=== PATIENT | male | born 1950 | race Caucasian/White ===

== ENCOUNTER 2019-02-11 18:18 | Inpatient (IN) ==
[2019-02-11 19:40] LABS: Bilirubin,Urine Small (Negative); Blood,Urine Negative (Negative); Clarity,Urine Clear (Clear); Color,Urine Yellow (Yellow); Glucose,Urine (UA) >=1000 mg/dL (Normal); Ketones,Urine Negative (Negative); Leukocyte Esterase,Urine Negative (Negative); Nitrite,Urine Negative (Negative); PH,Urine 5.5 pH Units (5.0-8.0); Protein,Urine Negative (Neg-Trace); Specific Gravity,Urine 1.029 (1.010-1.025); Urobilinogen,Urine Normal (Normal)
[2019-02-11] MEDS ORDERED: Isovue-370 500 ML BOTTLE IVP ONE (19:48)
--- NOTE | 2019-02-11 19:55 | Emergency Department Note ---
Disposition Clinical Impression: Abnormal abdominal CT scan, Abnormal liver function test, Leukocytosis, History of colon cancer, Diabetes, Prostatic hypertrophy, Frail elderly, Abdominal pain Disposition: Admitted As Inpatient Referrals: Naye Chapman CNP [Primary Care Provider] - Forms: ED Satisfaction Letter, Work/School Release Time of Disposition: 03:11 General Adult HPI - General Chief complaint: ED Abdominal Pain Stated complaint: ABD Pain Time Seen by Provider: 02/11/19 19:35 Source: patient Limitations: no limitations - History of Present Illness HPI Narrative: 68-year-old male reports to the emergency department with concerns for left lower abdominal pain which has been present for about 2 days he went to see his primary care physician who examined him and thought perhaps he had diverticulitis so he recommended patient come to the emergency department. There is no history of vomiting diarrhea or bloody stool. No genital discomfort pain or acute genital or urinary concern. There is no history of flank or back pain. The patient is not anticoagulated. He denies chest or abdominal pain. There is no history of trauma. No fevers or rashes. No spinal pain no trouble moving the arms or legs independently no facial drooping confusion or headache reported. The patient describes a history of colon cancer his last abdominal surgery was 2007 for that particular pathology. The patient denies a history of gallbladder disease gastritis or pancreatitis. The patient describes left lower abdominal pain without other acute complaints. Pain Scale: 3 - Related Data Allergies Allergy/AdvReac Type Severity Reaction Status Date / Time No Known Allergies Allergy Verified 02/11/19 18:33 All systems ED: reviewed and negative except as stated. Past Medical History - Past Medical History Medical history: Reports: arthritis, cancer, diabetes, hyperlipidemia, hypertension Surgical history: Reports: colectomy, orthopedic, other Psychiatric history: Reports: no psych history - Social History Smoking Status: Former smoker Smokeless Tobacco Status: No Alcohol use: Reports: occasionally Drug use: Reports: none Physical Exam - General Limitations: no limitations General appearance: alert, in no apparent distress - Head Head exam: atraumatic, normocephalic, normal inspection - Eye Eye exam: Present: normal appearance, PERRL, EOMI, scleral icterus - ENT ENT exam: normal exam, normal oropharynx, mucous membranes moist, TM's normal bilaterally, normal external ear exam - Neck Neck exam: Present: normal inspection, full ROM, trachea midline - Chest Chest inspection: Present: symmetric chest wall rise. Absent: tenderness - Respiratory Respiratory exam: Present: normal lung sounds bilaterally. Absent: respiratory distress, prolonged expiratory phase - Cardiovascular Cardiovascular exam: Present: regular rate, normal rhythm, normal heart sounds - Abdominal Exam Abdominal exam: Present: soft, tenderness. Absent: distention, guarding, rebound, rigidity, trauma, Skinner's sign, pulsatile mass, hernia Abdominal tenderness: Present: LLQ, moderate - Extremities Exam Extremities exam: Present: normal inspection, full ROM, normal capillary refill. Absent: tenderness, pedal edema, joint swelling, calf tenderness - Expanded Lower Extremity Exam Neurovascular/Tendon exam: Present: normal capillary refill. Absent: motor deficit, sensory deficit, tendon deficit, extremity cold to touch, pallor - Back Exam Back exam: Present: normal inspection, full ROM. Absent: tenderness, CVA tenderness (R), CVA tenderness (L), vertebral tenderness - Neurological Exam Neurological exam: Present: alert, oriented X3, CN II-XII intact. Absent: motor sensory deficit - Psychiatric Psychiatric exam: Present: normal affect, normal mood - Skin Skin exam: Present: warm, dry, intact Course Vital Signs Temperature 99.3 F 02/11/19 18:29 Pulse Rate 92 02/11/19 18:29 Respiratory Rate 16 02/11/19 18:29 Blood Pressure 124/67 02/11/19 18:29 O2 Sat by Pulse Oximetry 92 02/11/19 18:29 Temperature 99.3 F 02/11/19 18:29 Pulse Rate 59 02/12/19 00:43 Respiratory Rate 18 02/12/19 00:43 Blood Pressure 125/54 02/12/19 00:43 O2 Sat by Pulse Oximetry 94 02/12/19 00:43 Oxygen Delivery Oxygen Delivery Room Air Medical Decision Making - [facility] Narrative Medical decision making narrative: The patient presents to the emergency department with abdominal pain, he was sent in by his primary care physician with concerns for left-sided abdominal pain. Laboratory studies show significant liver function test abnormalities. His prior LFTs a few months ago were normative. CT scan suggestive of pyelonephritis. The patient had a low-grade temperature, very slight tachycardi a, he does have an elevated white blood cell count and could meet sepsis criteria. IV fluids were given blood cultures were sent Ancef given in consultation with the pharmacist. Hepatitis testing pending. Based on the patient's significant liver function abnormalities, elevated white blood cell c ount, abnormal CT scan with potential pyelonephritis, in association with comorbidities including hypertension, hyperlipidemia, and diabetes with possible sepsis, I thought it would be appropriate to admit the patient to the hospital. He is agreeable. He was treated for pain in the emergency department and appears to be stable. CPK ordered. I discussed the case with the hospitalist on-call who has accepted the patient to their care pending PT PTT and ammonia level. If INR greater than 1.7 consideration for transfer will be given. Dr. Trujillo is aware and will intervene if there is a change in plan. - Lab Data Lab results reviewed: Yes I reviewed the patient's lab results. Result diagrams: 02/11/19 20:00 02/11/19 19:40 Lab Results 02/11/19 02/11/19 02/11/19 Range/Units 19:30 19:40 19:40 WBC (4.3-11.1) K/mcL RBC (4.19-5.50) M/mcL Hgb (12.9-16.9) g/dL Hct (37.5-50.1) % MCV (83.0-100.0) fL MCH (28.0-33.3) pg MCHC (31.6-35.5) g/dL RDW (11.5-14.5) % Plt Count (140-400) K/mcL MPV (9.4-12.4) fL Immature Gran % (0-4) % Seg Neutrophils % % Lymphocytes % % Monocytes % % Eosinophils % % Basophils % % Neutrophils # (1.6-8.9) K/mcL Lymphocytes # (0.6-4.6) K/mcL Monocytes # (0.0-1.3) K/mcL Eosinophils # (0.0-0.6) K/mcL Basophils # (0.0-0.2) K/mcL Reactive Lymphocytes (Not Present) Toxic Granulation (Not Present) Toxic Vacuolation (Not Present) Platelet Estimate (Normal) Large Platelets (Not Present) Sodium 136 (136-145) mEq/L Potassium 4.0 (3.5-5.1) mEq/L Chloride 101 (98-107) mEq/L Carbon Dioxide 23 (23-29) mEq/L BUN 19 (8-23) mg/dL Creatinine 0.86 (0.70-1.30) mg/dL Est GFR ( Amer) > 60 (> 60) Est GFR (Non-Af Amer) > 60 (> 60) BUN/Creatinine Ratio 22 (6-26) Glucose 168 H (70-105) mg/dL Calculated Osmolality 288 (280-300) Lactic Acid (0.5-2.2) mmol/L Calcium 9.6 (8.6-10.3) mg/dL Total Bilirubin 3.3 H (0.3-1.0) mg/dL Direct Bilirubin 1.9 H (0.0-0.2) mg/dL Indirect Bilirubin 1.4 H (0.0-1.2) mg/dL AST 1382 H (13-39) Units/L ALT 1405 H (7-52) Units/L Alkaline Phosphatase 202 H (34-104) Units/L C-Reactive Protein (Less than 10) mg/L Serum Total Protein 6.4 (6.4-8.9) g/dL Albumin 4.0 (3.5-5.7) g/dL Globulin 2.4 (2.4-3.5) g/dL Albumin/Globulin Ratio 1.7 (1.1-2.2) Lipase 64 (11-82) Units/L Urine Color Yellow (Yellow) Urine Clarity Clear (Clear) Urine pH 5.5 (5.0-8.0) pH Units Ur Specific D[place] 1.029 H (1.010-1.025) Urine Protein Negative (Neg-Trace) mg/dL Urine Glucose (UA) >=1000 H (Normal) mg/dL Urine Ketones Negative (Negative) mg/dL Urine Blood Negative (Negative) Urine Nitrite Negative (Negative) Urine Bilirubin Small H (Negative) Urine Urobilinogen Normal (Normal) mg/dL Ur Leukocyte Esterase Negative (Negative) Ur Culture Indicated? NO (NO) Acetaminophen (10-20) mcg/mL Hepatitis A IgM Ab (Nonreactive) Hep Bs Antigen (Nonreactive) Hep B Core IgM Ab (Nonreactive) Hepatitis C Ab Screen (Nonreactive) Specimen Rejected Clotted 02/11/19 02/11/19 02/11/19 Range/Units 20:00 20:00 20:00 WBC 19.2 H (4.3-11.1) K/mcL RBC 4.81 (4.19-5.50) M/mcL Hgb 14.2 (12.9-16.9) g/dL Hct 43.4 (37.5-50.1) % MCV 90.2 (83.0-100.0) fL MCH 29.5 (28.0-33.3) pg MCHC 32.7 (31.6-35.5) g/dL RDW 13.6 (11.5-14.5) % Plt Count 175 (140-400) K/mcL MPV 10.3 (9.4-12.4) fL Immature Gran % 0.6 (0-4) % Seg Neutrophils % 89.5 % Lymphocytes % 2.9 % Monocytes % 6.8 % Eosinophils % 0.0 % Basophils % 0.2 % Neutrophils # 17.2 H (1.6-8.9) K/mcL Lymphocytes # 0.6 (0.6-4.6) K/mcL Monocytes # 1.3 (0.0-1.3) K/mcL Eosinophils # 0.0 (0.0-0.6) K/mcL Basophils # 0.0 (0.0-0.2) K/mcL Reactive Lymphocytes Present A (Not Present) Toxic Granulation Present A (Not Present) Toxic Vacuolation Present A (Not Present) Platelet Estimate Normal (Normal) Large Platelets Present A (Not Present) Sodium (136-145) mEq/L Potassium (3.5-5.1) mEq/L Chloride (98-107) mEq/L Carbon Dioxide (23-29) mEq/L BUN (8-23) mg/dL Creatinine (0.70-1.30) mg/dL Est GFR ( Amer) (> 60) Est GFR (Non-Af Amer) (> 60) BUN/Creatinine Ratio (6-26) Glucose (70-105) mg/dL Calculated Osmolality (280-300) Lactic Acid 2.0 (0.5-2.2) mmol/L Calcium (8.6-10.3) mg/dL Total Bilirubin (0.3-1.0) mg/dL Direct Bilirubin (0.0-0.2) mg/dL Indirect Bilirubin (0.0-1.2) mg/dL AST (13-39) Units/L ALT (7-52) Units/L Alkaline Phosphatase (34-104) Units/L C-Reactive Protein 28 H (Less than 10) mg/L Serum Total Protein (6.4-8.9) g/dL Albumin (3.5-5.7) g/dL Globulin (2.4-3.5) g/dL Albumin/Globulin Ratio (1.1-2.2) Lipase (11-82) Units/L Urine Color (Yellow) Urine Clarity (Clear) Urine pH (5.0-8.0) pH Units Ur Specific [place] (1.010-1.025) Urine Protein (Neg-Trace) mg/dL Urine Glucose (UA) (Normal) mg/dL Urine Ketones (Negative) mg/dL Urine Blood (Negative) Urine Nitrite (Negative) Urine Bilirubin (Negative) Urine Urobilinogen (Normal) mg/dL Ur Leukocyte Esterase (Negative) Ur Culture Indicated? (NO) Acetaminophen (10-20) mcg/mL Hepatitis A IgM Ab (Nonreactive) Hep Bs Antigen (Nonreactive) Hep B Core IgM Ab (Nonreactive) Hepatitis C Ab Screen (Nonreactive) Specimen Rejected 02/11/19 02/11/19 Range/Units 23:17 23:17 WBC (4.3-11.1) K/mcL RBC (4.19-5.50) M/mcL Hgb (12.9-16.9) g/dL Hct (37.5-50.1) % MCV (83.0-100.0) fL MCH (28.0-33.3) pg MCHC (31.6-35.5) g/dL RDW (11.5-14.5) % Plt Count (140-400) K/mcL MPV (9.4-12.4) fL Immature Gran % (0-4) % Seg Neutrophils % % Lymphocytes % % Monocytes % % Eosinophils % % Basophils % % Neutrophils # (1.6-8.9) K/mcL Lymphocytes # (0.6-4.6) K/mcL Monocytes # (0.0-1.3) K/mcL Eosinophils # (0.0-0.6) K/mcL Basophils # (0.0-0.2) K/mcL Reactive Lymphocytes (Not Present) Toxic Granulation (Not Present) Toxic Vacuolation (Not Present) Platelet Estimate (Normal) Large Platelets (Not Present) Sodium (136-145) mEq/L Potassium (3.5-5.1) mEq/L Chloride (98-107) mEq/L Carbon Dioxide (23-29) mEq/L BUN (8-23) mg/dL Creatinine (0.70-1.30) mg/dL Est GFR ( Amer) (> 60) Est GFR (Non-Af Amer) (> 60) BUN/Creatinine Ratio (6-26) Glucose (70-105) mg/dL Calculated Osmolality (280-300) Lactic Acid (0.5-2.2) mmol/L Calcium (8.6-10.3) mg/dL Total Bilirubin (0.3-1.0) mg/dL Direct Bilirubin (0.0-0.2) mg/dL Indirect Bilirubin (0.0-1.2) mg/dL AST (13-39) Units/L ALT (7-52) Units/L Alkaline Phosphatase (34-104) Units/L C-Reactive Protein (Less than 10) mg/L Serum Total Protein (6.4-8.9) g/dL Albumin (3.5-5.7) g/dL Globulin (2.4-3.5) g/dL Albumin/Globulin Ratio (1.1-2.2) Lipase (11-82) Units/L Urine Color (Yellow) Urine Clarity (Clear) Urine pH (5.0-8.0) pH Units Ur Specific Dray[place] (1.010-1.025) Urine Protein (Neg-Trace) mg/dL Urine Glucose (UA) (Normal) mg/dL Urine Ketones (Negative) mg/dL Urine Blood (Negative) Urine Nitrite (Negative) Urine Bilirubin (Negative) Urine Urobilinogen (Normal) mg/dL Ur Leukocyte Esterase (Negative) Ur Culture Indicated? (NO) Acetaminophen < 10 L (10-20) mcg/mL Hepatitis A IgM Ab Nonreactive (Nonreactive) Hep Bs Antigen Nonreactive (Nonreactive) Hep B Core IgM Ab Nonreactive (Nonreactive) Hepatitis C Ab Screen Nonreactive (Nonreactive) Specimen Rejected - Radiology Data Radiology results reviewed: Yes I reviewed the patient's radiology results.
[2019-02-11 20:30] LABS: Basophils % 0.2 %; Hematocrit 43.4 % (37.5-50.1); Hemoglobin 14.2 g/dL (12.9-16.9); Immature Granulocytes % 0.6 % (0-4); Lymphocytes # 0.6 K/mcL (0.6-4.6); Lymphocytes % 2.9 %; Mean Corpuscular HGB Conc 32.7 g/dL (31.6-35.5); Mean Corpuscular Hemoglobin 29.5 pg (28.0-33.3); Mean Platelet Volume 10.3 fL (9.4-12.4); Monocytes # 1.3 K/mcL (0.0-1.3); Monocytes % 6.8 %; Neutrophils # 17.2 K/mcL (1.6-8.9); Platelet Count 175 K/mcL (140-400); Red Blood Count 4.81 M/mcL (4.19-5.50); Red Cell Distribution Width 13.6 % (11.5-14.5); Segmented Neutrophils % 89.5 %; White Blood Count 19.2 K/mcL (4.3-11.1)
[2019-02-11 20:34] LABS: Mean Corpuscular Volume 90.2 fL (83.0-100.0)
[2019-02-11 20:48] LABS: Alanine Aminotransferase 1405 Units/L (7-52); Albumin/Globulin Ratio 1.7 (1.1-2.2); Alkaline Phosphatase 202 Units/L (34-104); Aspartate Amino Transferase 1382 Units/L (13-39); BUN/Creatinine Ratio 22 (6-26); Bilirubin,Direct 1.9 mg/dL (0.0-0.2); Bilirubin,Indirect 1.4 mg/dL (0.0-1.2); Bilirubin,Total 3.3 mg/dL (0.3-1.0); Blood Urea Nitrogen 19 mg/dL (8-23); Calcium 9.6 mg/dL (8.6-10.3); Carbon Dioxide 23 mEq/L (23-29); Chloride 101 mEq/L (98-107); Globulin 2.4 g/dL (2.4-3.5); Glucose 168 mg/dL (70-105); Lipase 64 Units/L (11-82); Osmolality,Calculated 288 (280-300); Sodium 136 mEq/L (136-145); Total Protein 6.4 g/dL (6.4-8.9); eGFR For African Americans > 60 (> 60); eGFR For Non-African Americans > 60 (> 60)
[2019-02-11 20:49] LABS: Large Platelets Present (Not Present); Platelet Estimate Normal (Normal); Reactive Lymphocytes Present (Not Present); Toxic Granulation Present (Not Present); Toxic Vacuolation Present (Not Present)
[2019-02-11] MEDS ORDERED: *HR* HYDROmorphone (PF) 1 MG/ML SYRINGE IVP ONE (21:46)
[2019-02-11] MEDS ORDERED: Ondansetron 4 MG/2 ML VIAL IVP ONE (21:48)
[2019-02-11] MEDS ORDERED: 0.9 % Sodium Chloride 1,000 ML IVC ONE (22:55)
[2019-02-12 00:58] LABS: Hepatitis B Surface Antigen Nonreactive (Nonreactive)
[2019-02-12] MEDS ORDERED: ceFAZolin 2,000 MG in Water for inj. (sterile) 20 ML IVP ONE (01:26)
[2019-02-12 01:27] LABS: Hepatitis B Core IgM Nonreactive (Nonreactive)
[2019-02-12 01:28] LABS: Hepatitis A Antibody IgM Nonreactive (Nonreactive); Hepatitis C Virus Antibody Nonreactive (Nonreactive)
[2019-02-12 04:02] LABS: Prothrombin Time 11.3 Seconds (9.4-12.1)
[2019-02-12 04:04] LABS: Activated Partial Thrombo Time 28.9 Seconds (26.0-36.0)
[2019-02-12 04:12] LABS: Albumin 3.7 g/dL (3.5-5.7); Albumin/Globulin Ratio 1.6 (1.1-2.2); Bilirubin,Direct 3.9 mg/dL (0.0-0.2); Bilirubin,Indirect 0.9 mg/dL (0.0-1.2); Bilirubin,Total 4.8 mg/dL (0.3-1.0); Globulin 2.3 g/dL (2.4-3.5)
[2019-02-12] MEDS ORDERED: Piperacillin/Tazobactam 3.375 GM in Water for inj. (sterile) 20 ML IVP ONE (04:37)
--- NOTE | 2019-02-12 04:43 | Emergency Department Note ---
START Narrative - START START: Dr. Zepeda notified of pending lab results and accepted admission of the patient. He requested we start Zosyn for possible choledocholithiasis. Patient resting comfortably in the room.
[2019-02-12] MEDS ORDERED: Ringers Solution, Lactated 1,000 ML IVC SCH (05:00)
[2019-02-12] MEDS ORDERED: *HR* Dextrose 50 % in Water (Syg) 50 ML SYRINGE IVP PRN (05:26)
[2019-02-12] MEDS ORDERED: Dextrose Gel 15 GM/37.5 ML TUBE PO PRN ×2 (05:26)
--- NOTE | 2019-02-12 05:56 | Internal Med History&Physical ---
Date of Encounter: 02/12/19 Time of Encounter: 05:51 Internal Medicine - H&P: HPI Chief complaint: abdominal pain Admitted From: Home () Plans for Post Hospital Care: Home History of present illness: Christopher Strickland is a 68 year old man with hypertension, hyperlipidemia and diabetes who presents to the emergency room for evaluation of abdominal pain that started over the last 2-3 days, initially intermittent and non-specific but yesterday felt the pain exacerbate and localize itself to his epigastrium, f eeling as though his abdomen became indurated and over time the pain dissipated into his lower abdomen. He denies associated nausea, vomiting, diarrhea, chest pain, fever, chills, dyspnea and diaphoresis. He went to his PCP who advised he come to the ER for evaluation. While he reports a history of colon cancer resected in 2007, he denies a history of gallbladder and pancreatic disease. In the ER he was hemodynamically stable but lab work revealed a leukocyte count of 19.2 with toxic granulation and large vacuolation. Serum chemistry showed his AST/ALT to be >1300 with an initial Alk phos of 202 and Tbil 3.3/Dbil 1.9 which on repeat increased to 4.8/3/[address] scan of his abdomen reported no issues with his hepatic parenchyma and gallbladder. He is admitted for further care. He tells me his abdominal pain has resolved after receiving analgesics in the ER. He denies acholia and coluria. No pruritis or mental status changes. He denies any recently introduced medications and the only OTC medication he takes is calcium. Vitals: Reviewed General: Well developed man lying in bed in NAD. Skin: Warm and supple. HEENT: Moist mucous membranes. No conjunctivae pallor. Mild scleral icterus noted. Neck: No lymphadenopathy. No JVD. No carotid bruits. No palpable thyroid. Chest: Normal thoracic expansion. Normal breath sounds. Clear to auscultation. Heart: Normal S1 & S2; rhythmic. No rubs or murmurs. Abdomen: Distended, soft and non-tender to palpation. No peritoneal reaction. Extremities: No clubbing, cyanosis or edema. No calf tenderness. Normal distal pulses. Neurological: Awake, alert and oriented to person, place and time. No focal deficits. No asterixis. Psych: Affect appropriate. Assessment/Plan 1. Acute liver injury: As evidenced by the significant dysfunction of his LFTs with a mixed picture showing both hepatocellular and a cholestatic pattern. He has mild scleral icterus but otherwise his clinical exam is benign. Even his urine macroscopically and microscopically is without signs of bilirubinuria. The etiology is unclear. His APAP level is <10, he denies EtOH and illicit drug use, He is not on any dietary supplements, antibiotics and no recent drugs introduced that could be a cause. He takes 80mg of atorvastatin and this is a potential cause if found to be drug-induced. Viral hepatitis has been ruled out. Will also need to rule out intrinsic biliary disease. An MRCP was ordered however he reports claustrophobia and intolerance to MRI studies so will get a simple liver ultrasound for now. He received a dose of PipTazo empirically for the associated leukocytosis however he clinically has no signs of infection/sepsis present at the moment. The CT did not show liver parenchymal lesions to suggest malignancy. Will probably need a revised CT read to ensure its normalcy. Hold all home medications, keep NPO for now and start IVF. Will consult GI in the interim for further recommendations. 2. Abnormal CT: There is report of renal perinephric standing suspicious for pyelonephritis. This does not correlate with him clinically nor his urinalysis. No indication for treatment of this. It may be reactive inflammatory changes seen. 3. Hypertension: Currently well controlled. 4. Diabetes: Will place on insulin sliding scale. Diet can be resumed after studies are done. Past Med Surg Social Fam HX - Past Medical History Medical history: arthritis, cancer, diabetes, hyperlipidemia, hypertension Additional medical history: Colon Cancer Psychiatric history: no psych history - Past Surgical History Surgical History: colectomy, orthopedic, other Additional surgical history: head trauma sx, tumor removed from buttocks, pins placed in hips - Social History Smoking Status: Former smoker Smokeless Tobacco Status: No Alcohol use: occasionally Drug use: none Internal Medicine - H&P: Meds Allergy/AdvReac Type Severity Reaction Status Date / Time No Known Allergies Allergy Verified 02/11/19 18:33 All Systems PM: A 10-system review of systems was performed and is negative for pertinent findings except as documented above in the HPI. Family history reviewed and found non-contributory. - Constitutional Vitals: Temp Pulse Resp BP Pulse Ox 99.3 F 64 18 128/62 95 02/11/19 18:29 02/12/19 04:51 02/12/19 04:51 02/12/19 04:51 02/12/19 04:51 Exam: . Internal Med - H&P Results - Labs CBC & Chem 7: 02/11/19 20:00 02/11/19 19:40 Labs: Short CBC 02/11/19 Range/Units 20:00 WBC 19.2 H (4.3-11.1) K/mcL Hgb 14.2 (12.9-16.9) g/dL Hct 43.4 (37.5-50.1) % Plt Count 175 (140-400) K/mcL Neutrophils # 17.2 H (1.6-8.9) K/mcL BMP 02/11/19 19:40 Sodium 136 Potassium 4.0 Chloride 101 Carbon Dioxide 23 BUN 19 Creatinine 0.86 Glucose 168 H Calcium 9.6 Liver Function 02/11/19 02/12/19 Range/Units 19:40 03:42 Total Bilirubin 3.3 H 4.8 H (0.3-1.0) mg/dL Direct Bilirubin 1.9 H 3.9 H (0.0-0.2) mg/dL AST 1382 H 756 H (13-39) Units/L ALT 1405 H 1225 H (7-52) Units/L Alkaline Phosphatase 202 H 183 H (34-104) Units/L Albumin 4.0 3.7 (3.5-5.7) g/dL Urine 02/11/19 Range/Units 19:30 Urine Color Yellow (Yellow) Urine Clarity Clear (Clear) Urine pH 5.5 (5.0-8.0) pH Units Ur Specific Sharon 1.029 H (1.010-1.025) Urine Protein Negative (Neg-Trace) mg/dL Urine Glucose (UA) >=1000 H (Normal) mg/dL - Impressions ITS Impressions Abdomen/Pelvis CT 02/11/19 19:48 IMPRESSION: There is patchy diminished cortical enhancement in both kidneys with perinephric fat stranding. Findings are suspicious for inflammatory/edematous changes of acute pyelonephritis. Clinical correlation recommended. Mild urinary bladder wall thickening versus underdistention. Mild to moderate prostatomegaly. Few tiny gallstones are suspected. Left paraumbilical fat containing hernia. D/ / Marco Banks MD / Marco Banks MD Interpreting Provider: Marco Banks MD Chest X-Ray 02/11/19 22:55 IMPRESSION: Negative chest. D/ / Wilfrido Braden MD / Wilfrido Braden MD Interpreting Provider: Wilfrido Braden MD - Time Spent With Patient Total time spent is greater than 50% in coordination of care (as documented) at patient's floor/unit and/or counseling patient:
[2019-02-12] MEDS: Insulin LISPRO 300 UNITS/3 ML VIAL SQ SCH ×3 (06:35→18:29)
[2019-02-12 08:54] LABS: Basophils % 0.2 %; Eosinophils # 0.1 K/mcL (0.0-0.6); Eosinophils % 0.4 %; Hematocrit 43.3 % (37.5-50.1); Hemoglobin 13.9 g/dL (12.9-16.9); Immature Granulocytes % 0.6 % (0-4); Lymphocytes # 1.1 K/mcL (0.6-4.6); Lymphocytes % 7.1 %; Mean Corpuscular HGB Conc 32.1 g/dL (31.6-35.5); Mean Corpuscular Hemoglobin 29.4 pg (28.0-33.3); Mean Corpuscular Volume 91.7 fL (83.0-100.0); Monocytes % 6.6 %; Neutrophils # 12.7 K/mcL (1.6-8.9); Platelet Count 162 K/mcL (140-400); Red Blood Count 4.72 M/mcL (4.19-5.50); Red Cell Distribution Width 14.1 % (11.5-14.5); Segmented Neutrophils % 85.1 %; White Blood Count 14.9 K/mcL (4.3-11.1)
[2019-02-12] MEDS ORDERED: D5% in Water 1,000 ML IVC PRN (09:19)
[2019-02-12 09:30] LABS: Alanine Aminotransferase 1130 Units/L (7-52); Albumin 3.7 g/dL (3.5-5.7); Albumin/Globulin Ratio 1.6 (1.1-2.2); Alkaline Phosphatase 186 Units/L (34-104); Aspartate Amino Transferase 615 Units/L (13-39); BUN/Creatinine Ratio 22 (6-26); Bilirubin,Direct 4.3 mg/dL (0.0-0.2); Bilirubin,Indirect 0.9 mg/dL (0.0-1.2); Bilirubin,Total 5.2 mg/dL (0.3-1.0); Blood Urea Nitrogen 22 mg/dL (8-23); Calcium 9.1 mg/dL (8.6-10.3); Carbon Dioxide 28 mEq/L (23-29); Chloride 102 mEq/L (98-107); Globulin 2.3 g/dL (2.4-3.5); Glucose 121 mg/dL (70-105); Osmolality,Calculated 293 (280-300); Potassium 3.7 mEq/L (3.5-5.1); Sodium 139 mEq/L (136-145); eGFR For African Americans > 60 (> 60); eGFR For Non-African Americans > 60 (> 60)
[2019-02-12 09:47] LABS: Hepatitis B Surface Antibody 4.39 mIU/mL
[2019-02-12 09:57] LABS: Hepatitis B Surface Antigen Nonreactive (Nonreactive)
[2019-02-12 10:26] LABS: Hepatitis C Virus Antibody Nonreactive (Nonreactive)
--- NOTE | 2019-02-12 10:57 | Gastroenterology Consult Note ---
<Alisha Anders - Last Filed: 02/12/19 14:52> Date of Encounter: 02/12/19 Time of Encounter: 10:38 - Assessment and plan (1) Elevated LFTs Status: Acute Assessment and plan: Presented to the ED complaining of spastic sharp intermittent abdominal pain onset 1 day prior to presentation In the ED noted to have ALT of 1405 with AST of 1382 and total bilirubin 3.3. This morning ALT 1130 with AST is 615, alkaline phosphatase 186 total bilirubin 5.2 with direct bilirubin 4.3 He does currently have an intact gallbladder Denies any alcohol use or acetaminophen use CT of the abdomen did not show any colonic or liver findings MRCP pending as choledocholithiasis cannot be ruled out Liver ultrasound showed mild inflammation of gallbladder ordered HIDA scan Ferritin and iron panel ordered to evaluate for hemachromatosis Ceruloplasmin ordered to evaluate for Rashaun's ONEIDA and LDH additionally ordered - Time Spent With Patient Total time spent is greater than 50% in coordination of care (as documented) at patient's floor/unit and/or counseling patient: GI History of Present Illness - Data of Consult Requesting Physician: Dena Johnson - Consult Narrative History of present illness: Mr. Strickland is a 68 year old male with past medical history of hyperlipidemia, hypertension, diabetes, colon cancer with hemicolectomy colectomy 2007 who presented to the ED complaining of abdominal pain ongoing for the past 2 days. At home on a glymepiride, atenolol, atorvastatin, ferrous sulfate, farxiga, metformin, losartan and furosemide. He reported spastic sharp upper right and left quadrant abdominal pain that woke him up yesterday morning during the day pain subsided subsequently visited his PCP who sent him to the ER. Today he is reporting left lower quadrant bowel pain that is intermittent in and dull in intensity now. States the intensity decreased after he had a banana and Sprite at home. Reports he had similar episode about 3 weeks ago which resolved on its own. He reports he had a most recent colonoscopy one year ago which was within normal limits. In the ED his white blood cell count was noted to be 19.2 with ALT and AST above 1300. This morning his AST is 650 and ALT is 11:30 with alkaline phosphatase 186. He has an ammonia of 57. Reports occasional alcohol use with 1-2 beers a week. Denies tobacco use, marijuana use or any supplements or awkw-[id number]-gskzbkz medications including acetaminophen. He previously had an appendectomy during his hemicolectomy in 2007 but has an intact gallbladder. Denies fever, chills, nausea, emesis, shortness of breath, chest pain. 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 He additionally denies any family history of colonic or liver malignancies. Past Med Surg Social Fam HX - Past Medical History Medical history: arthritis, cancer, diabetes, hyperlipidemia, hypertension Additional medical history: Colon Cancer Psychiatric history: no psych history - Past Surgical History Surgical History: colectomy, orthopedic, other Additional surgical history: head trauma sx, tumor removed from buttocks, pins placed in hips - Social History Smoking Status: Former smoker Smokeless Tobacco Status: No Alcohol use: occasionally Drug use: none - Gastrointestinal Gastrointestinal: Present: abdominal pain. Absent: constipation, diarrhea, melena, nausea - Constitutional Constitutional: fatigue, no fever(s) - EENT Nose, mouth and throat: Absent: dysphagia, sore throat - Cardiovascular Cardiovascular ROS: Absent: chest pain, palpitations - Respiratory Respiratory IM: Absent: cough, dyspnea - Genitourinary Genitourinary: Present: change in color (Darker in color) - Neurological ROS Neurological GI: Absent: confusion, frequent falls, headache(s), weakness - Hematologic/Lymphatic Hematologic/Lymphatic pediatric: Absent: easy bleeding - Musculoskeletal Musculoskeletal ROS GI: Absent: back pain, joint swelling - Integumentary Integumentary GI: Absent: pruritis, rash - Constitutional Vitals: Temp Pulse Resp BP Pulse Ox 98.3 F 58 16 158/79 95 02/12/19 06:31 02/12/19 06:31 02/12/19 06:31 02/12/19 06:31 02/12/19 04:51 General appearance: Present: A&O X 3, no acute distress - Head Head exam: Present: atraumatic, normal inspection - Eye Eye exam: Present: EOMI, scleral icterus - ENT ENT exam: Present: mucous membranes moist Additional comments: Yellowing under tongue noted - Respiratory Respiratory exam: Present: CTAB. Absent: rhonchi, wheezes - Cardiovascular Cardiovascular exam: Present: RRR, +S1, +S2 - GI/Abdominal GI/Abdominal exam: Present: soft. Absent: distended, firm, guarding, tenderness - Extremities Exam Extremities exam: Present: warm. Absent: pedal edema, tenderness - Neurological Exam Neurological exam: Present: alert, oriented X3 - Psychiatric Psychiatric exam: Present: normal affect, normal mood - Skin Skin exam: Present: dry. Absent: normal color (jaundice ), rash Results - Labs CBC & Chem 7: 02/12/19 08:31 02/12/19 08:31 Labs: Last Result 02/12/19 08:31 Calcium 9.1 Entire Visit 02/11/19 02/12/19 02/12/19 23:17 03:42 03:42 Hgb Hct PT 11.3 Total Bilirubin AST ALT Ammonia 57 H Acetaminophen < 10 L 02/12/19 02/12/19 02/12/19 03:42 08:31 08:31 Hgb 13.9 Hct 43.3 PT Total Bilirubin 4.8 H 5.2 H AST 756 H 615 H ALT 1225 H 1130 H Ammonia Acetaminophen - ABG ABG results: PT/INR, D-dimer PT 11.3 Seconds (9.4-12.1) 02/12/19 03:42 - Impressions Impressions Abdomen/Pelvis CT 02/11/19 19:48 IMPRESSION: There is patchy diminished cortical enhancement in both kidneys with perinephric fat stranding. Findings are suspicious for inflammatory/edematous changes of acute pyelonephritis. Clinical correlation recommended. Mild urinary bladder wall thickening versus underdistention. Mild to moderate prostatomegaly. Few tiny gallstones are suspected. Left paraumbilical fat containing hernia. D/ / Marco Banks MD / Marco Banks MD Interpreting Provider: Marco Banks MD Chest X-Ray 02/11/19 22:55 IMPRESSION: Negative chest. D/ / Wilfrido Braden MD / Wilfrido Braden MD Interpreting Provider: Wilfrido Braden MD Liver Ultrasound 02/12/19 09:00 IMPRESSION: Cholelithiasis is present. There is mild edema of the gallbladder wall, which could be related to intrinsic liver disease. If there is high clinical suspicion for acute cholecystitis, further evaluation with a HIDA scan could be considered. D/ / Deonte Monzon MD / Deonte Monzon MD Interpreting Provider: Deonte Monzon MD Consult Discharge Plan - Plan Referrals: Naye Chapman CNP [Primary Care Provider] - (Web Request sent 02/15/2019. Office will call with appointment. ) Prescriptions: Glimepiride [Amaryl] 4 mg PO QAM #30 tablet metFORMIN [Glucophage] 500 mg PO BIDWM #60 tablet HYDROcodone/Acet 5/325 mg [[place] 5-325 mg] 1 tab PO DAILY PRN 7 Days #7 tablet PRN Reason: Pain Metoprolol XL (24 HR) Succ [Toprol Xl] 25 mg PO DAILY #30 tab.er.24h <Bob Sanchez - Last Filed: 02/18/19 05:42> Date of Encounter: 02/12/19 - Time Spent With Patient Total time spent is greater than 50% in coordination of care (as documented) at patient's floor/unit and/or counseling patient: GI History of Present Illness - Data of Consult Requesting Physician: Dena Johnson - Consult Narrative History of present illness: Mr. Strickland is a 68 year old male - Constitutional Vitals: Temp Pulse Resp BP Pulse Ox 98.3 F 62 16 176/79 97 02/15/19 11:49 02/15/19 11:49 02/15/19 11:49 02/15/19 11:49 02/15/19 03:28 Results - Labs CBC & Chem 7: 02/15/19 02:51 02/15/19 02:51 - ABG ABG results: PT/INR, D-dimer PT 11.3 Seconds (9.4-12.1) 02/12/19 03:42 - Attending Attestation Mr. Strickland is a 68 year old male with past medical history of hyperlipidemia, hypertension, diabetes, colon cancer with hemicolectomy colectomy 2007 who presented to the ED complaining of abdominal pain ongoing for the past 2 days. Agree with MRCP. Workup in progress. I examined this patient and my medical decision-making was reviewed with the Resident Physician. I agree with the documented findings, disposition and treatment plan as described except to the extent set forth below.
[2019-02-12 12:27] LABS: Hepatitis A Antibody IgM Nonreactive (Nonreactive)
[2019-02-12] MEDS ORDERED: *HR* LORazepam 2 MG/ML VIAL IVP PRN (13:43)
[2019-02-12 14:04] LABS: % Iron Saturation 35 % (20-55); Iron 106 mcg/dL (65-175); Transferrin 216 mg/dL (203-362)
[2019-02-12 15:11] LABS: Lactate Dehydrogenase 257 Units/L (140-271)
[2019-02-12] MEDS: Ringers Solution, Lactated 1,000 ML IVC SCH (18:23)
--- NOTE | 2019-02-12 18:49 | Internal Med Progress Note ---
Hospitalist Progress Note - Encounter Date of Encounter: 02/12/19 Time of Encounter: 10:10 - Subjective Interval History: Mr Strickland denies any history of alcoholic consumption. Stated his abdominal pain is resolved, denies any prior history of hepatitis or chronic intake of rool-phh-[id number] Tylenol Cold and products. He is stating that he does not want to go for an MRCP due to his claustrophobia and he is requesting to be transferred to Hospital capable of open MRI machine ihe thinks there is such hospital in [place] based on his prior experience. He is finally agreeable to get some anxiolytics and attempt the MRCP. His Bre can be reached at [phone] GEN: Denies fever, chills or malaise HEENT: Denies headache blurriness, or dysphagia RESP: Denies SOB or cough CV: Denies chest pain or palpitations GI: Denies Nausea, vomiting, diarrhea or constipation Reviewed current in hospital medications with modifications see orders Reviewed Routine labs - Exam Vitals: Temp Pulse Resp BP Pulse Ox 98.1 F 77 16 168/73 97 02/12/19 16:38 02/12/19 16:38 02/12/19 16:38 02/12/19 16:38 02/12/19 16:38 Exam: GEN: Obese male NAD, A&O x 3, Pleasant and conversant but sometimes uncooperative, at his bedside SKIN:avilez warm acyanotic not jaundice HEART: RRR, no murmurs LUNGS: CTA no wheeze or crackles, overall non labored ABDOMEN; Soft, non tender or distended, BS x 4 normactive EXT: No LE edema, Pedal pulses 1+, radial pulses 2+ PSYCH: Mood irritable and affect labile - Assessment and Plan (1) Abdominal pain Current Visit: Yes Status: Acute Assessment and Plan: Workup so far seems to suggest hepatic origin with his elevated LFTs likely choledocholithiasis currently denies any abdominal pain (2) Abnormal abdominal CT scan Current Visit: Yes Status: Acute Assessment and Plan: Patchy cortical enhancement of both kidneys with jareth-nephrotic fat stranding suggestive of acute pyelonephritis however patient denies dysuria no costovertebral angle tenderness on exam continue empiric antibiotics therapy (3) Abnormal liver function test Current Visit: Yes Status: Acute Assessment and Plan: workup so far included acute hepatitis panel was unremarkable, although his fe rritin appears to be elevated. MRCP pending trend LFTs he denies any Tylenol usage chronically or acutely Tylenol level wnl (4) Diabetes Current Visit: Yes Status: Acute Assessment and Plan: Check A1c in the morning insulin therapy per protocol (5) Leukocytosis Current Visit: Yes Status: Acute Assessment and Plan: Etiology remains unclear symptoms suggestive hepatic causes from choledocholithiasis acute cholecystitis however physical exam is unyielding afebrile blood cultures pending continue empiric antimicrobial therapy DVT Prophylaxis: scds - Time Spent with Patient Total time spent is greater than 50% in coordination of care (as documented) at patient's floor/unit and/or counseling patient: Internal Medicine: Result - Labs CBC & Chem 7: 02/12/19 08:31 02/12/19 08:31 Labs: Short CBC 02/11/19 02/12/19 Range/Units 20:00 08:31 WBC 19.2 H 14.9 H (4.3-11.1) K/mcL Hgb 14.2 13.9 (12.9-16.9) g/dL Hct 43.4 43.3 (37.5-50.1) % Plt Count 175 162 (140-400) K/mcL Neutrophils # 17.2 H 12.7 H (1.6-8.9) K/mcL BMP 02/11/19 02/12/19 19:40 08:31 Sodium 136 139 Potassium 4.0 3.7 Chloride 101 102 Carbon Dioxide 23 28 BUN 19 22 Creatinine 0.86 0.99 Glucose 168 H 121 H Calcium 9.6 9.1 Liver Function 02/11/19 02/12/19 02/12/19 Range/Units 19:40 03:42 08:31 Total Bilirubin 3.3 H 4.8 H 5.2 H (0.3-1.0) mg/dL Direct Bilirubin 1.9 H 3.9 H 4.3 H (0.0-0.2) mg/dL AST 1382 H 756 H 615 H (13-39) Units/L ALT 1405 H 1225 H 1130 H (7-52) Units/L Alkaline Phosphatase 202 H 183 H 186 H (34-104) Units/L Albumin 4.0 3.7 3.7 (3.5-5.7) g/dL Urine 02/11/19 Range/Units 19:30 Urine Color Yellow (Yellow) Urine Clarity Clear (Clear) Urine pH 5.5 (5.0-8.0) pH Units Ur Specific [place] 1.029 H (1.010-1.025) Urine Protein Negative (Neg-Trace) mg/dL Urine Glucose (UA) >=1000 H (Normal) mg/dL - ABG Interpretation ABG results: PT/INR, D-dimer PT 11.3 Seconds (9.4-12.1) 02/12/19 03:42 - Impressions Impressions Abdomen/Pelvis CT 02/11/19 19:48 IMPRESSION: There is patchy diminished cortical enhancement in both kidneys with perinephric fat stranding. Findings are suspicious for inflammatory/edematous changes of acute pyelonephritis. Clinical correlation recommended. Mild urinary bladder wall thickening versus underdistention. Mild to moderate prostatomegaly. Few tiny gallstones are suspected. Left paraumbilical fat containing hernia. D/ / Marco Banks MD / Marco Banks MD Interpreting Provider: Marco Banks MD Chest X-Ray 02/11/19 22:55 IMPRESSION: Negative chest. D/ / Wilfrido Braden MD / Wilfrido Braden MD Interpreting Provider: Wilfrido Braden MD Liver Ultrasound 02/12/19 09:00 IMPRESSION: Cholelithiasis is present. There is mild edema of the gallbladder wall, which could be related to intrinsic liver disease. If there is high clinical suspicion for acute cholecystitis, further evaluation with a HIDA scan could be considered. 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
[2019-02-12] MEDS: Piperacillin/Tazobactam 3.375 GM in 0.9 % Sodium Chloride Mini Bag 100 ML IVPB SCH (23:29)
[2019-02-13] MEDS: Insulin LISPRO 300 UNITS/3 ML VIAL SQ SCH ×4 (02:02→17:39)
[2019-02-13] MEDS ORDERED: D5% in Water 1,000 ML IVC PRN (04:02)
[2019-02-13] MEDS ORDERED: Dextrose Gel 15 GM/37.5 ML TUBE PO PRN ×2 (04:02)
[2019-02-13] MEDS ORDERED: *HR* Dextrose 50 % in Water (Syg) 50 ML SYRINGE IVP PRN (04:02)
[2019-02-13] MEDS: Ringers Solution, Lactated 1,000 ML IVC SCH (05:13)
[2019-02-13 08:08] LABS: Basophils % 0.1 %; Eosinophils # 0.1 K/mcL (0.0-0.6); Eosinophils % 0.7 %; Hematocrit 40.1 % (37.5-50.1); Hemoglobin 13.1 g/dL (12.9-16.9); Immature Granulocytes % 0.7 % (0-4); Lymphocytes # 0.6 K/mcL (0.6-4.6); Mean Corpuscular HGB Conc 32.7 g/dL (31.6-35.5); Mean Corpuscular Hemoglobin 29.6 pg (28.0-33.3); Mean Corpuscular Volume 90.7 fL (83.0-100.0); Mean Platelet Volume 10.1 fL (9.4-12.4); Monocytes # 0.7 K/mcL (0.0-1.3); Monocytes % 7.8 %; Neutrophils # 7.5 K/mcL (1.6-8.9); Platelet Count 128 K/mcL (140-400); Red Blood Count 4.42 M/mcL (4.19-5.50); Red Cell Distribution Width 13.7 % (11.5-14.5); Segmented Neutrophils % 83.7 %
[2019-02-13] MEDS: Piperacillin/Tazobactam 3.375 GM in 0.9 % Sodium Chloride Mini Bag 100 ML IVPB SCH ×2 (09:06→17:37)
[2019-02-13 09:22] LABS: Alanine Aminotransferase 657 Units/L (7-52); Albumin 3.4 g/dL (3.5-5.7); Albumin/Globulin Ratio 1.5 (1.1-2.2); Alkaline Phosphatase 217 Units/L (34-104); Aspartate Amino Transferase 244 Units/L (13-39); BUN/Creatinine Ratio 22 (6-26); Bilirubin,Direct 1.5 mg/dL (0.0-0.2); Bilirubin,Total 2.5 mg/dL (0.3-1.0); Blood Urea Nitrogen 16 mg/dL (8-23); Calcium 8.6 mg/dL (8.6-10.3); Carbon Dioxide 27 mEq/L (23-29); Chloride 105 mEq/L (98-107); Ferritin 1036 ng/mL (20-250); Globulin 2.2 g/dL (2.4-3.5); Glucose 152 mg/dL (70-105); Magnesium 1.9 mg/dL (1.6-2.6); Osmolality,Calculated 292 (280-300); Potassium 3.5 mEq/L (3.5-5.1); Sodium 139 mEq/L (136-145); Total Protein 5.6 g/dL (6.4-8.9); eGFR For African Americans > 60 (> 60); eGFR For Non-African Americans > 60 (> 60)
[2019-02-13 09:38] LABS: Estimated Average Glucose 186 mg/dl
[2019-02-13] MEDS: *HR* HYDROcodone/Acet 5/325 mg TABLET PO PRN (11:05)
--- NOTE | 2019-02-13 15:43 | Internal Med Progress Note ---
Hospitalist Progress Note - Encounter Date of Encounter: 02/13/19 Time of Encounter: 08:00 - Subjective Interval History: Was notified by nurse that Mr. Strickland has been noncooperative with his current workup. Objective the patient on the work up and treatment plan so far for his acute hepatitis. He stated that his hip is hurting due to laying down on the hard surface for the radiographic imaging but unable to administer any narcotic medication due to the study protocol insets shots review of system GEN: Denies fever, chills or malaise HEENT: Denies headache blurriness, or dysphagia RESP: Denies SOB or cough CV: Denies chest pain or palpitations GI: Denies Nausea, vomiting, diarrhea or constipation Reviewed current in hospital medications with modifications see orders Reviewed Routine labs - Exam Vitals: Temp Pulse Resp BP Pulse Ox 98.3 F 65 16 159/74 98 02/13/19 11:22 02/13/19 11:22 02/13/19 11:22 02/13/19 11:22 02/13/19 04:37 Exam: GEN: Obese male NAD, A&O x 3, Pleasant and conversant was initially slightly irritated SKIN:avilez warm acyanotic not jaundice HEART: RRR, no murmurs LUNGS: CTA no wheeze or crackles, overall non labored ABDOMEN; Soft, non tender or distended, BS x 4 normactive EXT: No LE edema, Pedal pulses 1+, radial pulses 2+ PSYCH: Mood and affect is appropriate given his circumstance - Assessment and Plan (1) Acute hepatitis Current Visit: Yes Status: Acute Assessment and Plan: Workup so far has been negative for hepatitis A B and C, he denies any alcoholic use denies any acetaminophen use initial acetaminophen level was less than 10. Other non viral hepatitis could be at play, although he denies any travel history or dietary changes. His ferritin is elevated as such hemochromatosis may be on the differential, appreciate GI input. Ferritin trended down from [id number], AST trended down from 1382- 244, LT trended down from 1405 to 657, total bilirubin trended down from 5.2 to 2.5, direct bilirubin trended down from 4.3-1.5, indirect bilirubin has normalized (2) Abdominal pain Current Visit: Yes Status: Acute Assessment and Plan: Workup so far seems to suggest hepatic origin with his elevated LFTs likely choledocholithiasis currently denies any abdominal pain (3) Abnormal abdominal CT scan Current Visit: Yes Status: Acute Assessment and Plan: Patchy cortical enhancement of both kidneys with jareth-nephrotic fat stranding suggestive of acute pyelonephritis however patient denies dysuria no costovertebral angle tenderness on exam continue empiric antibiotics therapy (4) Abnormal liver function test Current Visit: Yes Status: Acute Assessment and Plan: workup so far included acute hepatitis panel was unremarkable, although his ferritin appears to be elevated. MRCP was unrevealing. Ferritin trended down from [id number], AST trended down from 1382- 244, LT trended down from 1405 to 657, total bilirubin trended down from 5.2 to 2.5, direct bilirubin trended down from 4.3-1.5, indirect bilirubin has normalized (5) Diabetes Current Visit: Yes Status: Acute Assessment and Plan: Check A1c 8.1 insulin therapy per protocol (6) Leukocytosis Current Visit: Yes Status: Acute Assessment and Plan: Etiology remains unclear symptoms suggestive hepatic causes from choledocholithiasis acute cholecystitis however physical exam is unyielding, MRCP was also unrevealing for acute cholecystitis. afebrile blood cultures pending continue empiric antimicrobial therapy (7) Hip pain Current Visit: Yes Status: Acute Assessment and Plan: Chronic hip pain, likely from osteoarthritis aggravated by his current workup- radiographic imaging will resume his home norco once he completes the study protocol work up for his acute hepatitis DVT Prophylaxis: scds - Time Spent with Patient Total time spent is greater than 50% in coordination of care (as documented) at patient's floor/unit and/or counseling patient: Internal Medicine: Result - Labs CBC & Chem 7: 02/13/19 07:45 02/13/19 07:45 Labs: Short CBC 02/13/19 Range/Units 07:45 WBC 9.0 (4.3-11.1) K/mcL Hgb 13.1 (12.9-16.9) g/dL Hct 40.1 (37.5-50.1) % Plt Count 128 L (140-400) K/mcL Neutrophils # 7.5 (1.6-8.9) K/mcL BMP 02/13/19 07:45 Sodium 139 Potassium 3.5 Chloride 105 Carbon Dioxide 27 BUN 16 Creatinine 0.74 Glucose 152 H Calcium 8.6 Liver Function 02/13/19 Range/Units 07:45 Total Bilirubin 2.5 H (0.3-1.0) mg/dL Direct Bilirubin 1.5 H (0.0-0.2) mg/dL AST 244 H (13-39) Units/L ALT 657 H (7-52) Units/L Alkaline Phosphatase 217 H (34-104) Units/L Albumin 3.4 L (3.5-5.7) g/dL - ABG Interpretation ABG results: PT/INR, D-dimer PT 11.3 Seconds (9.4-12.1) 02/12/19 03:42 - Impressions Impressions Abdomen MRI 02/12/19 10:39 IMPRESSION: 1. Cholelithiasis without evidence to suggest cholecystitis. 2. Unremarkable noncontrast appearance of the liver. 3. Normal caliber bile ducts. 4. Kidneys demonstrate bilateral small cysts and mild nonspecific perinephric edema. D/ / Wilfrido Braden MD / Wilfrido Braden MD Interpreting Provider: Wilfrido Braden MD Bile Acid Absorption NM 02/12/19 13:58 IMPRESSION: 1. Patency of the common bile duct and cystic duct. No acute cholecystitis. D/ / Rahul Hidalgo MD / Rahul Hidalgo MD Interpreting Provider: Rahul Hidalgo MD Consult Discharge Plan - Plan Referrals: Naye Chapman, S[employer]INE[employer] [Primary Care Provider] - (5) Diabetes Qualifiers: Diabetes mellitus type: type 2 Diabetes mellitus penitentiary insulin use: unspecified penitentiary insulin use status Diabetes mellitus complication status: without complication Qualified Code(s): E11.9 - Type 2 diabetes mellitus without complications (6) Leukocytosis Qualifiers: Leukocytosis type: other Qualified Code(s): D72.828 - Other elevated white blood cell count (7) Hip pain Qualifiers: Laterality: left Qualified Code(s): M25.552 - Pain in left hip
[2019-02-13] MEDS: Insulin DETEMIR 100 UNIT/ML X5UNITS SQ SCH (22:26)
[2019-02-14] MEDS: Piperacillin/Tazobactam 3.375 GM in 0.9 % Sodium Chloride Mini Bag 100 ML IVPB SCH ×3 (01:24→17:02)
[2019-02-14] MEDS: *HR* HYDROcodone/Acet 5/325 mg TABLET PO PRN (01:35)
[2019-02-14 02:12] LABS: Basophils % 0.3 %; Eosinophils # 0.1 K/mcL (0.0-0.6); Eosinophils % 1.5 %; Hematocrit 38.7 % (37.5-50.1); Hemoglobin 12.5 g/dL (12.9-16.9); Immature Granulocytes % 0.9 % (0-4); Lymphocytes # 0.6 K/mcL (0.6-4.6); Lymphocytes % 9.1 %; Mean Corpuscular HGB Conc 32.3 g/dL (31.6-35.5); Mean Corpuscular Hemoglobin 29.8 pg (28.0-33.3); Mean Corpuscular Volume 92.4 fL (83.0-100.0); Mean Platelet Volume 10.1 fL (9.4-12.4); Monocytes # 0.6 K/mcL (0.0-1.3); Monocytes % 8.8 %; Neutrophils # 5.2 K/mcL (1.6-8.9); Platelet Count 126 K/mcL (140-400); Red Blood Count 4.19 M/mcL (4.19-5.50); Red Cell Distribution Width 13.6 % (11.5-14.5); Segmented Neutrophils % 79.4 %; White Blood Count 6.6 K/mcL (4.3-11.1)
[2019-02-14 02:29] LABS: Alanine Aminotransferase 441 Units/L (7-52); Albumin 3.2 g/dL (3.5-5.7); Albumin/Globulin Ratio 1.3 (1.1-2.2); Alkaline Phosphatase 199 Units/L (34-104); Aspartate Amino Transferase 99 Units/L (13-39); BUN/Creatinine Ratio 21 (6-26); Bilirubin,Direct 0.5 mg/dL (0.0-0.2); Bilirubin,Indirect 0.5 mg/dL (0.0-1.2); Blood Urea Nitrogen 15 mg/dL (8-23); Calcium 8.5 mg/dL (8.6-10.3); Carbon Dioxide 26 mEq/L (23-29); Chloride 104 mEq/L (98-107); Globulin 2.4 g/dL (2.4-3.5); Glucose 226 mg/dL (70-105); Magnesium 1.8 mg/dL (1.6-2.6); Osmolality,Calculated 290 (280-300); Potassium 3.4 mEq/L (3.5-5.1); Sodium 136 mEq/L (136-145); Total Protein 5.6 g/dL (6.4-8.9); eGFR For African Americans > 60 (> 60); eGFR For Non-African Americans > 60 (> 60)
[2019-02-14] MEDS: Insulin LISPRO 300 UNITS/3 ML VIAL SQ SCH ×3 (08:37→17:02)
[2019-02-14] MEDS ORDERED: Potassium Chloride Elixir 20 MEQ/15 ML UDC PO ONE (09:24)
[2019-02-14] MEDS: Furosemide 20 MG TABLET PO SCH (09:39)
--- NOTE | 2019-02-14 16:29 | Internal Med Progress Note ---
Hospitalist Progress Note - Encounter Date of Encounter: 02/14/19 Time of Encounter: 10:15 - Subjective Interval History: Mr Strickland stated his hip pain is somewhat improvement, his HIDA scan was unremarkable GEN: Denies fever, chills or malaise HEENT: Denies headache blurriness, or dysphagia RESP: Denies SOB or cough CV: Denies chest pain or palpitations GI: Denies Nausea, vomiting, diarrhea or constipation Reviewed current in hospital medications with modifications see orders Reviewed Routine labs - Exam Vitals: Temp Pulse Resp BP Pulse Ox 98.5 F 72 16 160/80 97 02/14/19 11:35 02/14/19 11:35 02/14/19 11:35 02/14/19 11:35 02/14/19 05:08 Exam: GEN: Obese male NAD, A&O x 3, Pleasant and conversant SKIN:avilez warm acyanotic not jaundice HEART: RRR, no murmurs LUNGS: CTA no wheeze or crackles, overall non labored ABDOMEN; Soft, non tender or distended, BS x 4 normactive EXT: No LE edema, Pedal pulses 1+, radial pulses 2+ PSYCH: Mood and affect is appropriate - Assessment and Plan (1) Acute hepatitis Current Visit: Yes Status: Acute Assessment and Plan: Workup so far has been negative for hepatitis A B and C, and ceruloplasmin levels. He denies any alcoholic use denies any acetaminophen use initial acetaminophen level was less than 10. Other non viral hepatitis could be at play, although he denies any travel history or dietary changes. His ferritin is elevated as such hemochromatosis may be on the differential however it is trending down without any intervention, appreciate GI input. Ferritin trended down from [id number], AST trended down from 1382- 244-99, ALT trended down from 1405 to 657-441, total bilirubin trended down from 5.2 to 2.5-1, direct bilirubin trended down from 4.3-1.5-0.5, indirect bilirubin has normalized (2) Abdominal pain Current Visit: Yes Status: Acute Assessment and Plan: Workup so far seems to suggest hepatic origin with his elevated LFTs. MRCP and HIDA scan with both negative for acute cholecystitis (3) Abnormal abdominal CT scan Current Visit: Yes Status: Acute Assessment and Plan: Patchy cortical enhancement of both kidneys with jareth-nephrotic fat stranding suggestive of acute pyelonephritis however patient denies dysuria no costovertebral angle tenderness on exam continue empiric antibiotics therapy (4) Abnormal liver function test Current Visit: Yes Status: Acute Assessment and Plan: Improving see section on acute hepatitis (5) Diabetes Current Visit: Yes Status: Acute Assessment and Plan: A1c 8.1 insulin therapy per protocol (6) Leukocytosis Current Visit: Yes Status: Acute Assessment and Plan: Resolved, Etiology remains unclear symptoms suggestive hepatic causes, MRCP and HIDA scan was also unrevealing. afebrile blood cultures pending 3 days continue empiric antimicrobial therapy (7) Hip pain Current Visit: Yes Status: Acute Assessment and Plan: Tolerable with [place], chronic and stable DVT Prophylaxis: scds anticipate discharge tomorrow - Time Spent with Patient Total time spent is greater than 50% in coordination of care (as documented) at patient's floor/unit and/or counseling patient: Internal Medicine: Result - Labs CBC & Chem 7: 02/14/19 01:45 02/14/19 01:45 Labs: Short CBC 02/14/19 Range/Units 01:45 WBC 6.6 (4.3-11.1) K/mcL Hgb 12.5 L (12.9-16.9) g/dL Hct 38.7 (37.5-50.1) % Plt Count 126 L (140-400) K/mcL Neutrophils # 5.2 (1.6-8.9) K/mcL BMP 02/14/19 01:45 Sodium 136 Potassium 3.4 L Chloride 104 Carbon Dioxide 26 BUN 15 Creatinine 0.73 Glucose 226 H Calcium 8.5 L Liver Function 02/14/19 Range/Units 01:45 Total Bilirubin 1.0 (0.3-1.0) mg/dL Direct Bilirubin 0.5 H (0.0-0.2) mg/dL AST 99 H (13-39) Units/L ALT 441 H (7-52) Units/L Alkaline Phosphatase 199 H (34-104) Units/L Albumin 3.2 L (3.5-5.7) g/dL - ABG Interpretation ABG results: PT/INR, D-dimer PT 11.3 Seconds (9.4-12.1) 02/12/19 03:42 Consult Discharge Plan - Plan Referrals: Naye Chapman, [employer]KER [Primary Care Provider] - (5) Diabetes Qualifiers: Diabetes mellitus type: type 2 Diabetes mellitus 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
[2019-02-14 18:36] LABS: HCV Quant Log NOT DETECTED log IU/mL
[2019-02-14] MEDS: Insulin DETEMIR 100 UNIT/ML X5UNITS SQ SCH (21:02)
[2019-02-15] MEDS: Piperacillin/Tazobactam 3.375 GM in 0.9 % Sodium Chloride Mini Bag 100 ML IVPB SCH ×2 (00:05→08:03)
[2019-02-15] MEDS: *HR* HYDROcodone/Acet 5/325 mg TABLET PO PRN (01:30)
[2019-02-15 03:20] LABS: Basophils % 0.5 %; Eosinophils # 0.1 K/mcL (0.0-0.6); Eosinophils % 1.7 %; Hematocrit 42.7 % (37.5-50.1); Hemoglobin 13.8 g/dL (12.9-16.9); Immature Granulocytes % 1.3 % (0-4); Lymphocytes # 1.1 K/mcL (0.6-4.6); Lymphocytes % 18.7 %; Mean Corpuscular HGB Conc 32.3 g/dL (31.6-35.5); Mean Corpuscular Hemoglobin 29.5 pg (28.0-33.3); Mean Corpuscular Volume 91.2 fL (83.0-100.0); Mean Platelet Volume 10.1 fL (9.4-12.4); Monocytes # 0.6 K/mcL (0.0-1.3); Monocytes % 9.3 %; Neutrophils # 4.2 K/mcL (1.6-8.9); Platelet Count 145 K/mcL (140-400); Red Blood Count 4.68 M/mcL (4.19-5.50); Red Cell Distribution Width 13.6 % (11.5-14.5); Segmented Neutrophils % 68.5 %; White Blood Count 6.1 K/mcL (4.3-11.1)
[2019-02-15 03:31] LABS: Albumin 3.4 g/dL (3.5-5.7); Albumin/Globulin Ratio 1.4 (1.1-2.2); Bilirubin,Direct 0.3 mg/dL (0.0-0.2); Bilirubin,Indirect 0.5 mg/dL (0.0-1.2); Bilirubin,Total 0.8 mg/dL (0.3-1.0); Globulin 2.5 g/dL (2.4-3.5); Total Protein 5.9 g/dL (6.4-8.9)
[2019-02-15 03:33] LABS: BUN/Creatinine Ratio 21 (6-26); Blood Urea Nitrogen 13 mg/dL (8-23); Calcium 8.9 mg/dL (8.6-10.3); Carbon Dioxide 23 mEq/L (23-29); Chloride 105 mEq/L (98-107); Glucose 231 mg/dL (70-105); Magnesium 1.8 mg/dL (1.6-2.6); Osmolality,Calculated 289 (280-300); Potassium 3.9 mEq/L (3.5-5.1); Sodium 136 mEq/L (136-145); eGFR For African Americans > 60 (> 60); eGFR For Non-African Americans > 60 (> 60)
[2019-02-15 03:50] LABS: Ferritin 370 ng/mL (20-250)
[2019-02-15] MEDS: Insulin LISPRO 300 UNITS/3 ML VIAL SQ SCH ×2 (08:03→12:10)
[2019-02-15] MEDS: Furosemide 20 MG TABLET PO SCH (08:03)
[2019-02-15] MEDS ORDERED: Metoprolol XL (24 HR) Succ 25 MG TAB.ER.24H PO SCH (09:00)
--- NOTE | 2019-02-15 09:46 | Discharge Summary ---
- NOTES TO OUTPATIENT PROVIDER Notes to Outpatient Provider: Post hospital discharge for acute hepatitis patient would need follow-up LFTs in about 7-10 days Orders not resulted at time of discharge: Pending orders 02/11/19 23:17 Culture,Blood [BC] Stat 02/12/19 08:31 Hepatitis Be Antigen Stat Hepatitis C Virus Quant Stat 02/12/19 15:14 ONE[place] IgG BERNICE rflx IFA Routine 02/13/19 14:52 Hemochromatosis 3 Mutatations Routine MTHFR 2 Mutations Routine Date of Encounter: 02/15/19 Time of Encounter: 09:40 - Discharge Diagnosis (1) Acute hepatitis Priority: Primary Status: Acute Assessment and Plan: Workup so far has been negative for hepatitis A B and C, and ceruloplasmin levels. MRCP and HIDA scan was negative, He denies any alcoholic use denies any acetaminophen use initial acetaminophen level was less than 10. Other non viral hepatitis could be at play, although he denies any travel history or dietary changes. His ferritin is elevated as such hemochromatosis may be on the differential however it is trending down without any intervention, appreciate GI input. Ferritin trended down from >3644-3120-180-370, AST trended down from 1382- 244-99-39, ALT trended down from 1405 to 657-441-304, total bilirubin trended down from 5.2 to 2.5-1-0.8, direct bilirubin trended down from 4.3-1.5-0.5-0.3, indirect bilirubin has normalized. Patient will need LFTs in about 7-10 business days to document complete resolution. The aforementioned negative workup patient was instructed to hold his atorvastatin for minimum of 3 months (2) Abdominal pain Priority: Secondary Status: Acute Assessment and Plan: Workup so far seems to suggest hepatic origin with his elevated LFTs. MRCP and HIDA scan with both negative. Resolved Qualifiers: Abdominal location: generalized Qualified Code(s): R10.84 - Generalized abdominal pain (3) Abnormal abdominal CT scan Priority: Primary Status: Acute Assessment and Plan: Patchy cortical enhancement of both kidneys with jareth-nephrotic fat stranding suggestive of acute pyelonephritis however patient denies dysuria no costovertebral angle tenderness on exam he received 4 days of Zosyn, blood cultures negative for 4 days (4) Abnormal liver function test Priority: Primary Status: Acute Assessment and Plan: Improving see section on acute hepatitis, repeat LFTs in 7-10 days from discharge (5) Diabetes Priority: Secondary Status: Acute Assessment and Plan: A1c 8.1 not at goal he is on metformin and Amaryl will increase dose of Amaryl at discharge Qualifiers: Diabetes mellitus type: type 2 Diabetes mellitus terminal press operator insulin use: unspecified snf insulin use status Diabetes mellitus complication status: without complication Qualified Code(s): E11.9 - Type 2 diabetes mellitus without complications (6) Leukocytosis Priority: Secondary Status: Acute Assessment and Plan: Resolved, Etiology remains unclear symptoms suggestive hepatic causes, MRCP and HIDA scan was also unrevealing. afebrile blood cultures pending 4 days, he was treated with 4 days of Zosyn no indication for outpatient antibiotics since leukocytosis have been normal for 3 days as initial leukocytosis was in the setting of acute hepatitis likely viral Qualifiers: Leukocytosis type: other Qualified Code(s): D72.828 - Other elevated white blood cell count (7) Hip pain Priority: Secondary Status: Acute Assessment and Plan: Tolerable with [place], chronic and stable DC home with 7 days worth of [place] Qualifiers: Laterality: left Qualified Code(s): M25.552 - Pain in left hip Hospital course: Mr. Strickland is a 68 year old male hospitalized with acute hepatitis with significant elevations in his LFTs, workup including MRCP HIDA scan acute hepatitis panel Tylenol level, CK LDH lipase and ceruloplasmin were all unremarkable. His LFTs trended down and at discharge Ferritin >1500 to 370, TB 5.2 to 0.8, DB 4.3 to 0.3, IB 1.4 to 0.5, AST 1382 to 39, ALT 1405 to 304, Alk Phos 217 to 180. Patient was also started on empiric antibiotics with Zosyn. His leukocytosis resolved within 2 days indicative of inflammatory response to acute hepatitis. Patient is to repeat LFTs in about a week and results called in to his primary care physician to document complete resolution. On the interim given afore negative workup discussed with patient regarding withholding of his lipitor for at least 3 months and then restarted at a lower dose. and farxiga. He reports GI upset with metformin was switched to 500 twice a day and increase Amaryl to 4 mg given that his A1c was 8.1 Discharge discussed with: patient - Time Spent with Patient Total time spent providing and/or coordinating discharge services: 45 mins Specific discharge activities: Please stop lipitor (atorvastatin) as discussed. Please make sure you follow up with your primary care doctor within the next 2 weeks to discuss the results of your liver function test that you should do a week now - Discharge Medications Prescriptions: New Glimepiride [Amaryl] 4 mg PO QAM #30 tablet metFORMIN [Glucophage] 500 mg PO BIDWM #60 tablet Metoprolol XL (24 HR) Succ [Toprol Xl] 25 mg PO DAILY #30 tab.er.24h Continued Losartan Potassium 25 mg PO DAILY Calcium Carbonate [Calcium] 600 mg PO DAILY Furosemide [Lasix] 20 mg PO DAILY HYDROcodone/Acet 5/325 mg [[place] 5-325 mg] 1 tab PO DAILY PRN 7 Days #7 tablet PRN Reason: Pain Discontinued Glimepiride [Amaryl] 2 mg PO DAILY Metformin HCl 1,000 mg PO QAM Gluc 2Kcl/Chondr/Sherly Hy/Hy AC [Glucosamine & Chondroitin Cap] 1 each PO DAILY Ferrous Sulfate 325 mg PO DAILY Dapagliflozin Propanediol [Farxiga] 10 mg PO DAILY Atorvastatin Calcium 80 mg PO DAILY Atenolol [Tenormin] 25 mg PO DAILY Home Medications: Calcium Carbonate [Calcium] 600 mg PO DAILY 02/13/19 [History] Furosemide [Lasix] 20 mg PO DAILY 02/13/19 [History] Losartan Potassium 25 mg PO DAILY 02/13/19 [History] Glimepiride [Amaryl] 4 mg PO QAM #30 tablet 02/15/19 [Rx] HYDROcodone/Acet 5/325 mg [[place] 5-325 mg] 1 tab PO DAILY PRN 7 Days #7 tablet 02/15/19 [Rx] Metoprolol XL (24 HR) Succ [Toprol Xl] 25 mg PO DAILY #30 tab.er.24h 02/15/19 [Rx] metFORMIN [Glucophage] 500 mg PO BIDWM #60 tablet 02/15/19 [Rx] Allergies/Adverse Reactions: Allergy/AdvReac Type Severity Reaction Status Date / Time No Known Allergies Allergy Verified 02/13/19 07:43 Date of admission: 02/14/19 21:12 Primary care physician: Naye Chapman CNP Consults: 02/12/19 05:20 Consult to Gastroenterology [CONS] Routine Consulting Provider: [facility] Reason for Consult: acute liver injury of unclear etiology Call Completed: No Discharging clinician: Dena Johnson Anticipated date of discharge: 02/15/19 - Constitutional Vitals: Temp Pulse Resp BP Pulse Ox 98.0 F 57 16 156/76 97 02/15/19 07:43 02/15/19 07:43 02/15/19 07:43 02/15/19 07:43 02/15/19 03:28 Exam: GEN: NAD, A&O x 3, Pleasant and conversant SKIN: [place] warm acyanotic not jaundice HEART: RRR, no murmurs LUNGS: CTA no wheeze or crackles, overall non labored ABDOMEN; Soft, non tender or distended, BS x 4 normactive EXT: No LE edema, Pedal pulses 1+, radial pulses 2+ PSYCH: Mood and affect is appropriate - Patient Status Disposition: Home, Self-Care Condition: Good Functional capacity at discharge: independent ambulation Overall status at discharge: patient is back to baseline - Discharge Instructions Follow Up With: Naye Chapman CNP [Primary Care Provider] - - Diet and Activity Activity: resume usual activities as tolerated Diet: diabetic diet, low fat, low cholesterol, low salt diet
[2019-02-15 10:10] LABS: HCV Quant Interpretation NOT DETECTED (Not Detected)
[2019-02-15 10:17] LABS: ANA IgG by ELISA NONE DETECTED (None Detected)
[2019-02-15 11:53] VITALS: BP 176/79
[2019-02-18 08:04] LABS: A1286C MTHFR Mutation HETEROZYGOUS; C665T MTHFR Mutation NEGATIVE; MTHFR Specimen Type WHOLE BLOOD
[2019-02-20 20:33] LABS: C282Y Hemochromatosis Mutation NEGATIVE; H63D Hemochromatosis Mutation HETEROZYGOUS; HFE Specimen Type WHOLE BLOOD; S65C Hemochromatosis Mutation NEGATIVE
== END 2019-02-15 13:33 | disposition home or self-care (01) | DRG 442 ==
LOC: 2ANU 18:18 → EMEROOARM 18:18 → SUATTDRO 02-12 04:45 → 2ANU 02-12 05:32
PROVIDERS: ADMIT Internal Medicine; ATTEND Pharmacist